=== PATIENT | male | born 1970 | race Caucasian/White ===

== ENCOUNTER 2020-05-15 06:44 | Day surgery (SDC) | payer OTHER ==
[2020-05-15] MEDS ORDERED: Sodium Chloride 0.9% 10 ML Syringe FLUSH PRN (06:45)
[2020-05-15] MEDS ORDERED: Propofol 200 MG/20 ML SDV IV ONE (06:45)
[2020-05-15] MEDS ORDERED: Midazolam 1 MG/ML 2 ML SDV IV ONE (06:45)
[2020-05-15] MEDS ORDERED: Lactated Ringers 1,000 ML IV SCH (06:45)
[2020-05-15] MEDS ORDERED: Simethicone Drops 40 MG/0.6 ML 30 ML Bottle ONE (08:12)
--- NOTE | 2020-05-15 08:25 | PCM.OPNOTE ---
- General Post-Op/Procedure Note Date of Surgery/Procedure: 05/15/20 Operative Procedure(s): c scope with biopsy Findings: polyp: cecum, prox transverse colon diverticulosis Pre Op Diagnosis: screening Post-Op Diagnosis: polyp cecum prox transverse colon. diverticulosis Anesthesia Technique: MAC Primary Surgeon: Juan Manuel Hu Anesthesia Provider: May Fakl Pathology: colon polyps x2 Complications: None Condition: Good Free Text/Narrative:: Noted to have a possible RBBB on monitor ekg ordered by TABLEMAN see dictation for procedure note.
--- NOTE | 2020-05-17 00:49 | OR ---
DATE OF OPERATION: 05/15/2020 SURGEON: Juan Manuel Hu MD PROCEDURE PERFORMED: Colonoscopy with cold forceps biopsy. PREOPERATIVE DIAGNOSIS: Colon cancer screening. POSTOPERATIVE DIAGNOSIS: Polyp of the cecum, as well as proximal transverse colon, and diverticulosis of the descending and sigmoid colon. INDICATIONS FOR PROCEDURE: This is a 49-year-old white male, who presents for his initial colon cancer screening. DESCRIPTION OF OPERATION: After an excellent IV sedation was administered, digital rectal exam was performed. No marked abnormality was noted. The flexible colonoscope was inserted and advanced to the cecum. Prep was excellent. Following findings were noted: Ascending colon: In the area of the cecum, a linear 2 x 5 mm polyp. Biopsies were taken to obliterate it, as well as photo. The remainder of the ascending colon was unremarkable. Transverse colon: In the proximal transverse colon, a small 3 mm polyp, biopsied with cold biopsy forceps and sent for permanent. Descending colon, occasional diverticula. Sigmoid, occasional diverticula. Rectum unremarkable. The patient tolerated the procedure well, was taken to recovery in good condition. /[id number] /MODL
== END 2020-05-15 09:33 | disposition home or self-care (01) ==
LOC: FB.SDS 06:44
PROVIDERS: ATTEND Surgery
DX: Z12.11 Encounter for screening for malignant neoplasm of colon (principal); D12.0 Benign neoplasm of cecum; D12.3 Benign neoplasm of transverse colon; K57.30 Diverticulosis of large intestine without perforation or abscess without bleeding; Z79.84 Long term (current) use of oral hypoglycemic drugs; Z79.899 Other long term (current) drug therapy
CPT/HCPCS: 00812; 45380; 82962; 93005; A9270; J2250; J2704; J7120; 88305

== ENCOUNTER 2025-09-21 07:36 | Day surgery (SDC) | payer BC, OTHER ==
[2025-09-21] MEDS ORDERED: fentaNYL 100 MCG/2 ML SDV IV ONE (07:37)
[2025-09-21] MEDS ORDERED: Propofol 200 MG/20 ML SDV IV ONE (07:37)
[2025-09-21] MEDS ORDERED: Midazolam 1 MG/ML 2 ML SDV IV ONE (07:37)
[2025-09-21] MEDS ORDERED: Sodium Chloride 0.9% 10 ML Syringe FLUSH PRN (07:45)
[2025-09-21] MEDS: Lactated Ringers 1,000 ML IV SCH (08:32)
== END 2025-09-21 10:35 | disposition home or self-care (01) ==
LOC: FB.SDS 07:36
PROVIDERS: ATTEND Surgery
DX: Z12.11 Encounter for screening for malignant neoplasm of colon (principal); D12.0 Benign neoplasm of cecum; D12.2 Benign neoplasm of ascending colon; D12.6 Benign neoplasm of colon, unspecified; K57.30 Diverticulosis of large intestine without perforation or abscess without bleeding; E11.9 Type 2 diabetes mellitus without complications; K40.20 Bilateral inguinal hernia, without obstruction or gangrene, not specified as recurrent; I10 Essential (primary) hypertension; Z79.899 Other long term (current) drug therapy
CPT/HCPCS: 00811; 45385; 82947; 88305; A9270; J2250; J2704; J3010; J7120